=== PATIENT | female | born 1960 | race Caucasian/White ===

== ENCOUNTER → 2018-05-28 | Outpatient (CLI) | payer BC, OTHER ==
[~2018-05-28] MED LIST: CALCAVITD PO; FISH OIL PO; FLAX PO; GLUCHON PO; MAGNESIUM PO; MULTIVITAMIN PO; MULVITMIND PO; OMEG1CAP30; TRAZ100 PO; VERAMYST SPRAY IH; VITAMIN D 1000 PO; VITAMIN D-32000 UNIT PO; VITAMIN K PO; [UNRECOGNIZED DRUG - OTHER] PO; [UNRECOGNIZED DRUG - OTHER] PO
== END | disposition home or self-care (01) ==
LOC: LAB SHORT 07:20 → PLD 07:20
DX: D22.5 Melanocytic nevi of trunk (principal)
CPT/HCPCS: 88305

== ENCOUNTER → 2018-07-03 | Outpatient (CLI) | payer BC, OTHER | END | disposition home or self-care (01) | LOC: LAB SHORT 13:59 → PLD 13:59 | DX: D22.5 Melanocytic nevi of trunk (principal) | CPT/HCPCS: 88305 ==

== ENCOUNTER → 2018-09-17 | Outpatient (CLI) | payer BC, OTHER ==
[2018-09-18 12:55] LABS: HPV 16 Negative (Negative); HPV 18 Negative (Negative); HPV OTHER HR TYPES Negative (Negative)
== END | disposition home or self-care (01) ==
LOC: LAB SHORT 11:43 → LAB 11:43
PROVIDERS: Nurse Practitioner Obstetrics & Gynecology
DX: Z01.419 Encounter for gynecological examination (general) (routine) without abnormal findings (principal)
CPT/HCPCS: 87624; G0123

== ENCOUNTER 2020-02-12 11:30 | Day surgery (SDC) | payer BC, OTHER ==
[~2020-02-12] VITALS: Ht 162.6 cm; Wt 81.0 kg
[~2020-02-12 11:30] MED LIST changes: +FLONASE ALLERG9.9 M2; +PROGESTERONE100 M1 PO
== END 2020-02-12 14:06 | disposition home or self-care (01) ==
LOC: ORSCSDS 11:30
PROVIDERS: Internal Medicine Gastroenterology
PROC: 0DBK8ZX Excision of Ascending Colon, Via Natural or Artificial Opening Endoscopic, Diagnostic (ICD-10-PCS; principal; 2020-02-12 12:45)
PROC: 0DBH8ZX Excision of Cecum, Via Natural or Artificial Opening Endoscopic, Diagnostic (ICD-10-PCS; principal; 2020-02-12 12:45)
DX: Z12.11 Encounter for screening for malignant neoplasm of colon (principal); D12.0 Benign neoplasm of cecum; D12.2 Benign neoplasm of ascending colon; K64.8 Other hemorrhoids
CPT/HCPCS: 88305; J2704; J7120

== ENCOUNTER 2020-02-14 07:12 | Day surgery (SDC) | payer BC, OTHER ==
[~2020-02-14] VITALS: Ht 162.6 cm; Wt 82.4 kg
[2020-02-14] MEDS ORDERED: ESTEST.62T (07:55)
== END 2020-02-14 10:31 | disposition home or self-care (01) ==
LOC: ORSCSDS 07:12
PROVIDERS: Obstetrics & Gynecology
PROC: 0UDB8ZX Extraction of Endometrium, Via Natural or Artificial Opening Endoscopic, Diagnostic (ICD-10-PCS; principal; 2020-02-14 08:30)
DX: N95.0 Postmenopausal bleeding (principal)
CPT/HCPCS: 88305; A9270; J0690; J1100; J1885; J2250; J2405; J2704; J3010; J7120

== ENCOUNTER → 2020-12-09 | Outpatient (CLI) | payer BC, OTHER ==
[~2020-12-09] MED LIST changes: +ESTEST.62T
== END | disposition home or self-care (01) ==
LOC: LAB SHORT 12:02 → LAB 12:02
DX: D48.5 Neoplasm of uncertain behavior of skin (principal)
CPT/HCPCS: 88305

== ENCOUNTER → 2023-04-06 | Outpatient (CLI) | payer BC, OTHER | LOC: LAB SHORT 12:33 → LAB 12:33 | DX: L92.8 Other granulomatous disorders of the skin and subcutaneous tissue (principal) | CPT/HCPCS: 88305 ==

== ENCOUNTER → 2023-10-12 | Outpatient (CLI) | payer BC, OTHER ==
[2023-10-12 18:23] LABS: Influenza A, PCR NEGATIVE (NEGATIVE); Influenza B, PCR NEGATIVE (NEGATIVE); Resp Syncytial Virus, PCR NEGATIVE (NEGATIVE)
[2023-10-12 20:51] LABS: SARS-Cov-2 (COVID-19) PCR, MMC POSITIVE (NEGATIVE)
== END ==
LOC: LAB 16:05 → LAB SHORT 16:05
PROVIDERS: Nurse Practitioner Family
DX: R05.9 Cough, unspecified (principal)
CPT/HCPCS: 0241U